=== PATIENT | female | born 1995 | race Caucasian/White ===

== ENCOUNTER 2021-04-02 18:49 | Observation (INO) | payer MEDICAID ==
[~2021-04-02] VITALS: Ht 157.5 cm; Wt 93.9 kg
[2021-04-02] MEDS ORDERED: NITR-87 PO (20:29)
[2021-04-02] MEDS ORDERED: PREN-55 PO (20:29)
== END 2021-04-02 21:00 | disposition home or self-care (01) ==
LOC: 8 EST LDRP 18:49 → 8 EST A/PP 19:07
PROVIDERS: ADMIT Obstetrics & Gynecology; ATTEND Obstetrics & Gynecology
DX: O36.8120 Decreased fetal movements, second trimester, not applicable or unspecified (principal); O26.892 Other specified pregnancy related conditions, second trimester; R10.30 Lower abdominal pain, unspecified; Z3A.26 26 weeks gestation of pregnancy
CPT/HCPCS: 59025; G0378; 99281